=== PATIENT | female | born 1950 | race African-American/Black ===

== ENCOUNTER 2020-11-29 13:18 | Inpatient (IN) | payer OTHER ==
[~2020-11-29] VITALS: Ht 162.6 cm; Wt 97.5 kg
--- NOTE | ~2020-11-29 | HC ---
[facility] [address] [place] [address] CONSULTATION Name: ATUL DEL REAL Room #: 215-P ADM IN M.R.#: [id number] Admission: 11/29/20 Attend Phys: Wilmer Winter MD Discharge: Date of : 52 Report #: [id number] THIS REPORT FOR: cc: FAM - Family physician unknown FAM - Family physician unknown Sylvester Govea MD ~ DATE OF SERVICE: 12/06/2020 HISTORY OF PRESENT ILLNESS: The patient is a 70-year-old female with history of schizophrenia, who is from [place] where she has been living in an independent senior apartment. She has supportive therapy including a correctional counselor/case manager for her psychiatric history. She has a noted history of elopement. She apparently got on a bus and came down here to [place]. She suffered some dog bites to her feet, was noted to be hypoxic, placed on oxygen by the paramedics, was admitted for acute hospitalization. She was noted to have acute hypoxic respiratory failure, has encephalopathy superimposed on top of her schizophrenia. She was diagnosed with cellulitis of her lower extremities, placed on IV Zosyn, also noted to have COPD exacerbation and congestive heart failure. Psychiatry is following her and there is question of possible [facility] stay depending upon how she does, she is currently needing high dose oxygen. We are seeing her in rehabilitation medicine consultation. PAST MEDICAL HISTORY: Includes hypertension, exogenous obesity, tobacco abuse, 3/4 packs per day. Habits are as noted. She was not on O2 premorbidly. SOCIAL HISTORY: Please see above. Did not utilize gait aids in her apartment and was not on O2, was on social security. ALLERGIES: HALDOL AND LITHIUM. REVIEW OF SYSTEMS: No current complaints of chest pain, shortness of breath or abdominal discomfort. PHYSICAL EXAMINATION: GENERAL: A 70-year-old obese female in no obvious distress. VITAL SIGNS: Last recorded temperature 36.8, pulse 71, respirations 24, blood pressure 163/79. NEUROLOGIC: She is alert. She is pleasant. She follows basic 1 step commands, currently on 5 liters nasal cannula. Facies are symmetric. EXTREMITIES: Functional range of motion of the upper extremities. Strength is grade 4 to 4-/5. DTRs are trace to 1. Lower extremities, she does have bandages over her distal legs where she notes the dog bites are located. There is no focal calf swelling. Strength is a grade 4 to 4-/5. She is standby assistance, sit to stand, was able to ambulate standby assistance [address] [address] CONSULTATION Name: ATUL DEL REAL Room #: 215-P [facility] IN .R.#: [id number] Admission: 11/29/20 Attend Phys: Wilmer Winter MD Discharge: Date of : 52 Report #: [id number] distances utilizing 6 liters, standby assistance for bed mobility. In occupational therapy, she is noted to have severe cognitive impairment and speech therapy with [id number] memory. ASSESSMENT: A 70-year-old female with the following problem list: 1. Toxic metabolic encephalopathy superimposed on premorbid schizophrenia. 2. Acute hypoxic respiratory failure, still on high dose oxygen. She has been receiving IV Solu-Medrol. 3. Cellulitis on IV Zosyn. 4. Congestive heart failure, on IV Lasix. 5. Chronic obstructive pulmonary disease exacerbation. 6. Exogenous obesity. 7. Tobacco abuse. PLAN: Therapies to continue working with her on improving strength, mobility and ADL independence and overall endurance as well as improved cognition. Note that the Senior Behavioral Unit is considering her for possible transfer. Need to further assess the assistance as far as the home setting and potential for returning back to [place], which seems like the best option when she is further medically stabilized. I am not sure how reasonable this is. Insurance will also need to be checked regarding rehab therapy options. The patient has significant cognitive deficits and would likely need direct assistance in returning back to [place]. At this point in time, we will be glad to follow along with you regarding her rehab therapy needs and rehab therapy options. Thank you for asking us to assist in this patient's care. By: 1238 [id number] Sylvester Govea MD /nt
[2020-11-29 13:28] VITALS: BP 166/86
[2020-11-29 13:53] LABS: ABSOLUTE NEUTROPHILS 3.3 thou/uL (1.4-8.2); BASOPHILS 0.7 % (0.0-2.0); EOSINOPHILS 0.2 % (0.0-3.0); HEMATOCRIT 35.5 % (37.0-47.0); HEMOGLOBIN 11.2 gm/dL (12.0-15.0); LYMPHOCYTES 20.5 % (24.0-44.0); MCH 27.5 pg (26.0-34.0); MCHC 31.4 g/dL (28.0-37.0); MCV 87.6 fL (80.0-100.0); MONOCYTES 8.5 % (1.0-8.0); PLATELET COUNT 301 thou/uL (150-400); POLYS 70.1 % (36.0-66.0); RBC 4.06 mil/uL (4.20-5.00); RDW 16.7 % (10.5-14.5); WBC 4.7 thou/uL (4.0-11.0)
[2020-11-29 14:03] LABS: ANION GAP 7 mmol/L (7-16); BUN 23 mg/dL (7-18); CALCIUM 8.5 mg/dL (8.5-10.1); CHLORIDE 106 mmol/L (98-107); CO2 33 mmol/L (21-32); CREATININE 0.9 mg/dL (0.6-1.0); GLUCOSE 121 mg/dL (74-106); POTASSIUM 3.3 mmol/L (3.5-5.1); SODIUM 146 mmol/L (136-145)
[2020-11-29 14:13] LABS: ALBUMIN 2.9 g/dL (3.4-5.0); SGOT 28 U/L (15-37); SGPT 45 U/L (14-59); TOTAL BILIRUBIN 0.4 mg/dL (0.2-1.0); TOTAL PROTEIN 6.9 g/dL (6.4-8.2); TROPONIN-I <0.06 ng/mL (<0.06)
[2020-11-29 15:15] LABS: URINE BILIRUBIN NEGATIVE (Negative); URINE BLOOD NEGATIVE (Negative); URINE CLARITY CLEAR; URINE COLOR YELLOW; URINE GLUCOSE-RANDOM* NEGATIVE (Negative); URINE KETONES NEGATIVE (Negative); URINE LEUKOCYTES-REFLEX NEGATIVE (Negative); URINE NITRITE-REFLEX NEGATIVE (Negative); URINE PROTEIN (DIPSTICK) 2+ (Negative); URINE SPECIFIC GRAVITY >= 1.030 (1.005-1.035); URINE UROBILINOGEN 0.2 E.U./dl (0.2-1.0)
[2020-11-29 15:22] LABS: CASTS None Seen /LPF (None Seen); SQUAMOUS 0-3 Few /LPF (0-3)
[2020-11-29 15:23] LABS: BACTERIA-REFLEX 1-9 Few /HPF (None Seen); CRYSTALS None Seen /LPF (None Seen); URINE RBC 0-2 Rare /HPF (0-2); URINE WBC-REFLEX 0-5 Rare /HPF (0-5)
[2020-11-29 17:45] LABS: AMP/METHAMP Negative (Negative); BARBITURATES Negative (Negative); BENZODIAZEPINES Negative (Negative); COCAINE Negative (Negative); METHADONE Negative (Negative); OPIATES Negative (Negative); PCP Negative (Negative)
[2020-11-29 18:40] VITALS: BP 112/58
[2020-11-29 21:25] VITALS: BP 132/60
[2020-11-29 22:18] VITALS: BP 145/84
[2020-11-30] VITALS: BP 159/90
[2020-11-30 01:38] LABS: BE(vivo) 4.4 mmol/L (-2 to +3); HCO3 34.4 mmol/L (22.0-26.0); PCO2 83.4 mmHg (35.0-45.0); PO2 102.2 mmHg (80.0-100.0); pH 7.233 (7.360-7.450); sO2 96.3 % (92.0-98.0)
[2020-11-30 03:12] LABS: BE(vivo) 4.5 mmol/L (-2 to +3); HCO3 33.9 mmol/L (22.0-26.0); PCO2 78.9 mmHg (35.0-45.0); PO2 105.3 mmHg (80.0-100.0); pH 7.251 (7.360-7.450); sO2 96.7 % (92.0-98.0)
[2020-11-30 04:23] LABS: HEMATOCRIT 35.1 % (37.0-47.0); HEMOGLOBIN 10.9 gm/dL (12.0-15.0); MCH 27.6 pg (26.0-34.0); MCHC 31.1 g/dL (28.0-37.0); MCV 88.7 fL (80.0-100.0); RBC 3.95 mil/uL (4.20-5.00); RDW 17.5 % (10.5-14.5); WBC 4.1 thou/uL (4.0-11.0)
[2020-11-30 04:47] LABS: CALCIUM 8.5 mg/dL (8.5-10.1)
[2020-11-30 05:10] LABS: POTASSIUM 4.5 mmol/L (3.5-5.1)
--- NOTE | 2020-11-30 06:46 | NUR ---
PATIENTS CARES WERE ASSUMED AFTER A TRANSFER FROM ED. PATIENT WAS ASSESSED AND MEDS WERE PASSED. PATIENT HEART RATE DROPPED TO THIRTY. WENT TO HER ROOM TO VIEW HER AND SHE WAS IN DISTRESS. CALL THE PAVING FOREMAN. GOT ORDERS AND CARRIED THEM OUT, GAVE SEVERAL 0900 MEDS TO GET HER STABLE. ROUNDS WERE DONE. THE BED IS LOW AND LOCKED.
--- NOTE | 2020-11-30 06:57 | EKG ---
[place] [address] [place] [address] ELECTROCARDIOGRAM REPORT Name: ATUL DEL REAL Room #: 215-P ADM IN M.R.#: [id number] Admission: 11/29/20 Attend Phys: Wilmer Winter MD Discharge: Date of : 52 Report #: [id number] [facility] ED Test Date: 2020-11-29 Test Time: 16:38:02 Pat Name: ATUL DEL REAL Department: Room: [facility] Gender: F Supervisor Twisting Department: emily : 1950 Requested By: Jennifer Arredondo Order Number: [id number] MD: Irving Rosa Measurements Intervals [place] Rate: 63 P: 61 ME: 185 QRS: -4 QRSD: 98 T: 57 QT: 475 QTc: 487 Interpretive Statements Sinus rhythm Borderline prolonged QT interval Baseline wander in lead(s) V1,V2 No previous ECG available for comparison Electronically Signed On 11-30-2020 6:57:07 CDT by Irving Rosa [email or web address] <ELECTRONICALLY SIGNED> By: Irving Rosa MD, [facility] 11/30/20 0657 [id number] 1638 Irving Rosa MD, FACC /EPI
[2020-11-30 07:40] VITALS: BP 157/91
[2020-11-30 08:06] LABS: BE(vivo) 5.6 mmol/L (-2 to +3); HCO3 34.9 mmol/L (22.0-26.0); PCO2 77.4 mmHg (35.0-45.0); PO2 87.8 mmHg (80.0-100.0); pH 7.272 (7.360-7.450); sO2 95.1 % (92.0-98.0)
--- NOTE | 2020-11-30 09:14 | 2DMMODE ---
[facility] [address] [employer] [place] [address] 2 D/M-MODE ECHOCARDIOGRAM Name: ATUL DEL REAL Room #: 215-P ADM IN M.R.#: [id number] Admission: 11/29/20 Attend Phys: Wilmer Winter MD Discharge: Date of : 52 Report #: [id number] THIS REPORT FOR: cc: FAM - Family physician unknown FAM - Family physician unknown Irving Rosa MD [facility] ~ APPROVED REPORT Study performed: 11/30/2020 08:35:56 EXAM: Comprehensive 2D, Doppler, and color-flow Echocardiogram Patient Location: Bedside Room #: [facility] Status: routine BSA: 2.08 HR: 66 bpm BP: 159/90 mmHg Rhythm: NSR Other Information Study Quality: Good Technically limited study due to morbid obesity and patient on BiPAP. Indications Congestive Heart Failure Dyspnea Hx: COPD, HTN, DM. 2D Dimensions RVDd: 44.57 mm IVSd: 13.41 (7-11mm) LVOT Diam: 20.79 (18-24mm) LVDd: 49.52 mm PWd: 12.86 (7-11mm) Ascending Ao: 33.51 (22-36mm) LVDs: 34.04 (25-40mm) Aortic Root: 30.96 mm Volumes Left Atrial Volume (Systole) Single Plane 4CH: 81.47 mL Single Plane 2CH: 97.99 mL LA ESV Index: 46.00 mL/m2 Aortic Valve AoV Peak Kevon.: 1.54 m/s [facility] [address] [place] [address] 2 D/M-MODE ECHOCARDIOGRAM Name: ATUL DEL REAL Room #: 215-P ADM IN M.R.#: [id number] Admission: 11/29/20 Attend Phys: Wilmer Winter MD Discharge: Date of : 51 Report #: [id number] AO Peak Gr.: 9.46 mmHg LVOT Max P.37 mmHg LVOT Max V: 1.05 m/s HAILEY Vmax: 2.31 cm2 Mitral Valve E/A Ratio: 1.1 MV Decel. Time: 140.40 ms MV E Max Kevon.: 1.14 m/s MV A Kevon.: 1.00 m/s MV PHT: 40.71 ms IVRT: 76.12 ms Pulmonary Valve PV Peak Kevon.: 0.82 m/s PV Peak Gr.: 2.70 mmHg Pulmonary Vein P Vein S: 0.40 m/s P Vein D: 0.47 m/s P Vein S/D Ratio: 0.85 Tricuspid Valve TR Peak Kevon.: 2.94 m/s RAP Estimate: 15.00 mmHg TR Peak Gr.: 35.00 mmHg PA Pressure: 50.00 mmHg Left Ventricle The left ventricle is normal size. There is normal LV segmental wall motion. Mild concentric left ventricular hypertrophy. Left ventricular systolic function is normal. LVEF is 55-60%. Moderate diastolic dysfunction is present. Right Ventricle Right ventricle is at the upper limits of normal. The right ventricular systolic function is normal. Atria Biatrial enlargement. Aortic Valve The aortic valve is normal in structure. Trace aortic regurgitation. There is no aortic valvular stenosis. Mitral Valve Mitral valve leaflets are mildly thickened. Mild mitral annular calcification. Moderate mitral regurgitation. [facility] [address] [place] [address] 2 D/M-MODE ECHOCARDIOGRAM Name: ATUL DEL REAL Room #: 215-P [facility] IN ..#: [id number] Admission: 11/29/20 Attend Phys: Wilmer Winter MD Discharge: Date of : 52 Report #: [id number] Tricuspid Valve The tricuspid valve is normal in structure. Mild to moderate tricuspid regurgitation. Estimated PAP is 45-50mmHg. Pulmonic Valve The pulmonary valve is normal in structure. Trace pulmonic regurgitation. Great Vessels The aortic root is normal in size. The ascending aorta is normal in size. IVC is dilated and collapses <50% with inspiration. Pericardium There is no pericardial effusion. <Conclusion> Normal left ventricular size/mild concentric hypertrophy Ejection fraction 60% Grade 1 diastolic dysfunction Normal right ventricular size/function Mild biatrial enlargement Color-flow Doppler study was performed of the aortic/mitral/tricuspid/pulmonary valve Moderate, posteriorly directed mitral valve insufficiency Mild tricuspid valve insufficiency Pulmonary systolic pressure estimated 45 mmHg No pericardial effusion Normal aortic root size. <ELECTRONICALLY SIGNED> By: Irving Rosa MD, FACC 11/30/20913 3 3 Irving Rosa MD, FACC /INF
--- NOTE | 2020-11-30 13:18 | NUR ---
met with patient while finishing lunch. After eating she needs to return to BIPAP. Patient admits with scratches to legs by dog. She is also hypoxic requiring supplemental oxygen. Patient reports she rec SS. She has bank place on her credit card. She reports she has [employer] card and [employer] card that where recently stolen. Assisted patient in calling her bank with number she knew. Patient reports she is homeless. She does not have any sleeping bag or belongins. Patient reports her address is [address] [place] [address] in [place]. Patient with hx of schzophrenia. She gave SS#. Called registration to update for ins. they report they have rec. info. Patient gave a number for friend wandy and reports casemgt can call her [phone] which is a fax number. Patient placed on BIPAP. Casemgt following.
[2020-11-30 15:50] VITALS: BP 118/71
[2020-11-30 19:24] VITALS: BP 107/56
[2020-11-30 19:52] LABS: BE(vivo) 4.9 mmol/L (-2 to +3); HCO3 32.3 mmol/L (22.0-26.0); PCO2 62.4 mmHg (35.0-45.0); PO2 107.4 mmHg (80.0-100.0); pH 7.332 (7.360-7.450); sO2 97.5 % (92.0-98.0)
[2020-11-30 23:17] VITALS: BP 122/67
[2020-12-01 03:31] VITALS: BP 139/68
--- NOTE | 2020-12-01 07:12 | NUR ---
ASSUME CARE 1900. PT/VITALS STABLE. INTERMITTENT BLE PAIN NOTED. POOR TOLERANCE TO ACTIVITY. ASSESSMENT CHARED. MODERATE PROGRESS TO POC. SR ON MONITOR. BIPAP ALL THROUGH THE NIGHT. PT ON 4LNC THIS AM WITH ADEQUATE SATS. PLAN IS TO CONTINUE WITH ABX THERAPY AND CONTINUE TO MONITOR AND MANAGE RESPIRATION FUNCTION. WILL CONTINUE TO MONITOR AND FOLLOW WITH POC
[2020-12-01 07:35] VITALS: BP 119/63
[2020-12-01 09:37] LABS: HEMATOCRIT 35.4 % (37.0-47.0); MCH 27.3 pg (26.0-34.0); MCHC 31.1 g/dL (28.0-37.0); RBC 4.02 mil/uL (4.20-5.00); RDW 17.2 % (10.5-14.5); WBC 5.4 thou/uL (4.0-11.0)
[2020-12-01 09:47] LABS: ANION GAP < 0 mmol/L (7-16); BUN 26 mg/dL (7-18); CALCIUM 8.5 mg/dL (8.5-10.1); CHLORIDE 106 mmol/L (98-107); CO2 38 mmol/L (21-32); CREATININE 1.2 mg/dL (0.6-1.0); GLUCOSE 172 mg/dL (74-106); MAGNESIUM 1.7 mg/dL (1.8-2.4); POTASSIUM 4.4 mmol/L (3.5-5.1); SODIUM 143 mmol/L (136-145)
--- NOTE | 2020-12-01 10:21 | NUR ---
PATIENT TRANSISITIONED FROM BIPAP TO 4L NC THIS AM. SATS ADEQUATE WITH NC. WILL CONTINUE TO MONITOR THROUGH OUT THE DAY. CONTINUED IV LASIX AND IV ABX. DRESSING CHANGE DONE BY DICK RN THIS AM. PATIENT DENIES ANY NEEDS OR CONCERNS AT THIS TIME.
[2020-12-01 11:14] VITALS: BP 146/78
[2020-12-01] MEDS ORDERED: INVEGA SUS234 MG/1.5 IM (14:03)
[2020-12-01 15:10] VITALS: BP 129/72
--- NOTE | 2020-12-01 16:33 | NUR ---
WOUND PICTURES TAKEN AND PLACED IN PATIENT CHART.
--- NOTE | 2020-12-01 17:10 | NUR ---
Spoke with Jes [phone]. She is community casemgt in [place]. Sp Left message with Shirley Liriano [phone] unsure of her role. Spoke with Tere Arshad [phone]. patient resides in [place] in independent [facility] apt complex with services through waiver. The complex is called the [facility]. Tere is patients designated payee and has been since 2013. She reports patient has a "team" of services in [place] but she is known to leave area. Tere reports she left [facility] Oct 20 on 11/13 she was in [facility] and told Tere she was going to take a taxi and go to [place]. Tere please she was here in [place]. Tere reports if she pays Polly she can likely return to [facility] all her belongings in [facility]. Sp with patient who is unsure if she plans to return to [place]. Tere reports patient rec checks no longer anguiano cards as she gives them away or lost. She reports she has been to [place] and in mental instution. Tere reports she has been told by patient she has a sister but estranged. She has never had a phone number or name for sister. She reports patient has been hospitalized in past and all looking for next of kin. Patient reports can call number of sister. When called voice mail of male. Patient to have therapy evals and psych consult cont to follow for dc planning.
[2020-12-01 19:34] VITALS: BP 109/64
[2020-12-02 04:11] VITALS: BP 158/98
--- NOTE | 2020-12-02 04:32 | NUR ---
PT ALERT TO SELF AND SITUATION, REFUSES SOME OF HER MEDS, NEEDS ENCOURAGMENT AND MEDICATION EDUCATION WITH EACH DOSE, NO C/O PAIN CON'T TO REMOVE OXYGEN AND BIPAP, ABLE TO TURN SELF IN BED, VSS, WILL CON'T TO MONITOR PER PPOC.
[2020-12-02 05:41] LABS: HEMATOCRIT 35.4 % (37.0-47.0); HEMOGLOBIN 10.8 gm/dL (12.0-15.0); MCH 26.7 pg (26.0-34.0); MCHC 30.5 g/dL (28.0-37.0); MCV 87.8 fL (80.0-100.0); RBC 4.04 mil/uL (4.20-5.00); RDW 17.2 % (10.5-14.5); WBC 5.6 thou/uL (4.0-11.0)
[2020-12-02 05:46] LABS: CALCIUM 8.4 mg/dL (8.5-10.1); CREATININE 1.1 mg/dL (0.6-1.0); MAGNESIUM 1.8 mg/dL (1.8-2.4); POTASSIUM 4.3 mmol/L (3.5-5.1)
[2020-12-02 07:25] VITALS: BP 149/89
[2020-12-02 11:18] VITALS: BP 141/74
--- NOTE | 2020-12-02 12:59 | NUR ---
FAXED CLINICAL UPDATE TO VIJAY IN [place] WITH THE [facility] RECEIVED CONFIRMATION.
--- NOTE | 2020-12-02 13:36 | NUR ---
spoke with Shirley Liriano she is with [facility]. She reorts her company assist people in community with mental health support needs. They offer casemgt, psychiatry, nursing and resources. Shirley reports working with patient since Apr last year. Discussed medically patient not stable to discharge. Planning therapy evals and stability with resp status. Plan to keep casemgt updated. Shirley [phone] [email or web address]
[2020-12-02 15:06] VITALS: BP 134/79
[2020-12-02 16:24] LABS: BE(vivo) 13.9 mmol/L (-2 to +3); HCO3 42.1 mmol/L (22.0-26.0); PCO2 73.8 mmHg (35.0-45.0); PO2 68.9 mmHg (80.0-100.0); pH 7.374 (7.360-7.450); sO2 92.5 % (92.0-98.0)
--- NOTE | 2020-12-02 18:20 | NUR ---
RECEIVED PT'S CARE AROUND 729; PT. ON BED; RESTING WITH EYES CLOSED; 02 SAT ABOVE 90%L SR ON THE MONITOR; DURING AM ASSESSMENT PT. AOX4; NO C/O PAIN; AM MEDICATIONS GIVEN; EDUCATED ABOUT CALLING BEFORE GETTING UP FROM BED; ST[facility] UNDERSTAND[facility]; THROUGH THE AFTERNOON PT. REFUSED INSULIN; EDUCATED ABOUT THE IMPORTANCE OF INSULIN; REFUSED IT; UP TO THE CHAIR WITH OT; AMBULATED WITH OT; PER PT. REPORT PT'S 02 SAT DROPPED WHEN AMBULATING; 02 SAT ON THE 80s WHILE EATING; 02 TITRATE FROM 3L TO 5L; DR. SALEEM AND DR. GARCIA NOTIFIED; NO NEW ORDERS; ABGs RESULTS IN THE SYSTEM; TRIED TO CONTACT DR. GARCIA X2; NO ANSWER; PER RT. PLEASE DO NOT INCREASE 02 MORE THEN 5L DUE TO PT. MIGHT STOP BREATHING; LEVEL VIAL SEALER ST. UNDERSTANDING; WILL PASS ON REPORT; SR ON THE MONITOR; THROUGH THE DAY PT. EDUCATED ABOUT USING 02; [facility]. UND[facility]STAND[facility]; FORGETFUL; ASSESSMENT CHARGED; FOLLOWING POC; WILL PASS ON REPORT;
[2020-12-02 19:38] VITALS: BP 129/67
[2020-12-03 03:36] VITALS: BP 146/92
[2020-12-03 05:07] LABS: HEMATOCRIT 33.5 % (37.0-47.0); HEMOGLOBIN 10.5 gm/dL (12.0-15.0); MCH 27.4 pg (26.0-34.0); MCHC 31.3 g/dL (28.0-37.0); MCV 87.6 fL (80.0-100.0); RBC 3.83 mil/uL (4.20-5.00); RDW 16.9 % (10.5-14.5); WBC 6.4 thou/uL (4.0-11.0)
[2020-12-03 05:11] LABS: CALCIUM 8.3 mg/dL (8.5-10.1); CREATININE 1.2 mg/dL (0.6-1.0); MAGNESIUM 1.8 mg/dL (1.8-2.4); POTASSIUM 4.2 mmol/L (3.5-5.1)
--- NOTE | 2020-12-03 07:27 | NUR ---
PATIENT WAS ON BIPAP ON AND OFF THIS SHIFT.RESTLESS LEG NOTED.PT SLEPT.DENIES PAIN.MONITOR SHOWS SA.POC CONTINUED.
[2020-12-03 08:00] VITALS: BP 150/79
--- NOTE | 2020-12-03 14:21 | NUR ---
ON-GOING ASSESSMENT: CM REVIEWED CHART AND SPOKE WITH ATTENDING. PT REMAINS ON IV ANBX WELL IV STEROIDS. PT CONTINUES TO BE ON 5L OXYGEN AND ON AND OFF BIPAP AT TIMES. CONSULT FOR PSYCH WAS COMPLETED. GIOVANNY SPOKE WITH DR. CONKLIN WHO REPORTS THEY WILL REASSESS PATIENT ON SUNDAY TO DETERMINE HER NEEDS. IN ORDER TO BE A POSSIBLE CANIDATE FOR 5S SHE CAN NO LONGER REQUIRE ANY USE OF THE BIPAP AND ON A STABLE LEVEL OF OXYGEN THAT WOULD NOT REQUIRE ANY DOSE ADJUSTMENTS. IF PATIENT IMPROVES AND IS NOT AGREEABLE TO A PSYCH ADMISSION MAY DETERMINE IF PATIENT IS ABLE TO GET ON BUS BACK TO [place]. PSYCH IS TO REASSES PATIENT SUNDAY. NO WEEKEND DISCHARGE PLANNED AT THIS TIME. CM WILL CONTINE TO FOLLOW TO ASSIST NEEDED.
[2020-12-03 16:47] VITALS: BP 143/70
--- NOTE | 2020-12-03 18:07 | NUR ---
RECEIVED PT'S CARE AROUND 07;30; PT. ON BED RESTING WITH EYES CLOSED; BYPAP OFF; EDUCATED ABOUT MANTAIN IT ON; ST. UNDERSTANDING; DURING AM ASSESSMENT PT. AOX4; NO C/O PAIN; REMAINED ABOUT CALLING BEFORE GETTING UP FROM BED; ST. UNDERSTANDING; WORKED WITH PT AND OT; PER OT PT. REFUSED TO SIT ON CHAIR; 02 SAT ON THE 80s WITH EXERTION; DR. GARCIA AWARE; THROUGH THE DAY PT. GONE FOR CT AND US; PER DR. CONKLIN PT. NOT ABLE TO BE ADMITTED ON 5S IF USING BYPAP AT NIGHT; DR. SALEEM ROUNDING AND NOTIFIED; ASSESSMENT CHARGED; FOLLOWING POC; WILL PASS ON REPORT;
[2020-12-03 21:15] VITALS: BP 142/77
[2020-12-04 04:56] VITALS: BP 183/85
--- NOTE | 2020-12-04 08:04 | NUR ---
ASSUME CARE 1900. PT/VITALS STABLE. INTERMITTENT BLE PAIN. MODERATE TOLERANCE TO ACTIVITY. PT/OT ON BOARD TO HELPIMPROVE ACTIVITY LEVEL. ASSESSMENT CHARTED. NO DISTRESS NOTED THROUGH THE NIGHT. PT IS VERY NON COMPLIANT WITH TREATMENT PLAN AND NEEDS MORE EDUCATON ON HEALTH PROMOTION. PLAN IS TO CONTINUE WITH ABX AND STEROID THERAPY. WILL CONTINUE TO MONITOR AND FOLLOW WITH POC
[2020-12-04 08:28] LABS: HEMATOCRIT 37.3 % (37.0-47.0); HEMOGLOBIN 11.7 gm/dL (12.0-15.0); MCH 27.3 pg (26.0-34.0); MCHC 31.3 g/dL (28.0-37.0); MCV 87.1 fL (80.0-100.0); RBC 4.29 mil/uL (4.20-5.00); RDW 16.8 % (10.5-14.5)
[2020-12-04 08:36] LABS: CALCIUM 9.1 mg/dL (8.5-10.1); MAGNESIUM 1.9 mg/dL (1.8-2.4); POTASSIUM 4.5 mmol/L (3.5-5.1)
[2020-12-04 09:15] VITALS: BP 155/89
[2020-12-04 12:24] VITALS: BP 102/54
[2020-12-04 12:26] VITALS: BP 134/66
--- NOTE | 2020-12-04 14:54 | NUR ---
PT ALERT AND ORIENTED. DENIED HAVING PAIN OR DISCOMFORT. RT TREATMENT PROVIDED ORDERED. NO CONCERNS AT THIS TIME.
[2020-12-04 19:07] VITALS: BP 153/71
[2020-12-05 03:42] VITALS: BP 149/83
--- NOTE | 2020-12-05 07:24 | NUR ---
ASSUMED CARE 1900. PT DENIED PAIN, NAUSEA, OR SOB. REFUSED LABS THIS AM. TOOK BIPAP OFF AROUND 0500, DESATTED TO LOW-MID 80'S ON RA, TOOK SEVERAL MINUTES TO RETURN TO 90'S ONCE 6L NC WAS ON. NO OTHER CONCERNS, SHIFT REPORT GIVEN 0700.
[2020-12-05 08:25] LABS: HEMATOCRIT 39.1 % (37.0-47.0); HEMOGLOBIN 12.2 gm/dL (12.0-15.0); MCH 27.1 pg (26.0-34.0); MCHC 31.1 g/dL (28.0-37.0); MCV 87.1 fL (80.0-100.0); RBC 4.49 mil/uL (4.20-5.00); RDW 16.4 % (10.5-14.5); WBC 6.4 thou/uL (4.0-11.0)
[2020-12-05 08:47] LABS: CREATININE 1.1 mg/dL (0.6-1.0); MAGNESIUM 2.1 mg/dL (1.8-2.4); POTASSIUM 4.1 mmol/L (3.5-5.1)
[2020-12-05 09:01] VITALS: BP 159/86
[2020-12-05 12:44] VITALS: BP 145/79
--- NOTE | 2020-12-05 15:32 | NUR ---
PT UP IN THE CHAIR THIS SHIFT. DENIES HAVING PAIN OR DISCOMFORT. VSS. NO RESPIRATORY DISTRESS NOTED. NO CONCERNS AT THIS TIME.
[2020-12-05 16:09] VITALS: BP 133/79
[2020-12-06 05:19] VITALS: BP 138/83
[2020-12-06 07:35] VITALS: BP 163/79
--- NOTE | 2020-12-06 08:30 | HC ---
[facility] [place] [place] [address] CONSULTATION Name: ATUL DEL REAL Room #: 215-P ADM IN M.R.#: [id number] Admission: 11/29/20 Attend Phys: Wilmer Winter MD Discharge: Date of : 52 Report #: [id number] THIS REPORT FOR: cc: FAM - Family physician unknown FAM - Family physician unknown Kwadwo Johnson MD ~ DATE OF SERVICE: 11/30/2020 CHIEF COMPLAINT: Dog bite to both lower extremities. HISTORY OF PRESENT ILLNESS: This is a 70-year-old female patient who is apparently homeless with schizophrenia, who normally lives in [place], who was apparently bitten by a dog. She is currently on BiPAP and having some respiratory distress. She is confused and not able to answer any questions. PAST MEDICAL HISTORY: Reportedly positive for congestive heart failure, hypokalemia, hypoxia. ALLERGIES: HALDOL AND LITHIUM. MEDICATIONS: Include paliperidone monthly injection. Additionally, she is receiving Zosyn, ondansetron, methylprednisolone, insulin, Lasix, budesonide, albuterol. FAMILY HISTORY: Unknown. SOCIAL HISTORY: Unknown other than that in history of present illness. REVIEW OF SYSTEMS: Unobtainable due to the patient's condition. She is unable to answer any questions. PHYSICAL EXAMINATION: VITAL SIGNS: Include temperature 36.2, pulse 66, respiratory rate 21, blood pressure 157/91. GENERAL: This is a chronically ill-appearing female patient who appears to be in minimal distress. HEENT: Head normocephalic. Nose and throat are difficult to assess. She is wearing a BiPAP mask at this time. She does not open her eyes. NECK: Supple. LUNGS: Diminished. HEART: Regular rhythm without murmur. ABDOMEN: Soft and nontender. EXTREMITIES: Lower extremities demonstrate palpable distal pulses. She has what appeared to be superficial lacerations to the pretibial regions bilaterally. It is difficult to determine whether these are related to a dog [facility] [address] [place] [address] CONSULTATION Name: ATUL DEL REAL Room #: [address] [place] [address] [place] [facility].#: [id number] Admission: 11/29/20 Attend Phys: Wilmer Winter MD Discharge: Date of : 52 Report #: [id number] bite or other trauma. CLINICAL IMPRESSION: 1. Traumatic wounds to bilateral lower extremities. 2. Respiratory failure, requiring BiPAP. 3. History of chronic obstructive pulmonary disease. 4. Schizophrenia. 5. Type 2 diabetes mellitus. 6. Morbid obesity. 7. Hypertension. RECOMMENDATIONS: At this point in time, recommend topical bacitracin, Xeroform and bordered foam daily, elevate the leg for control of edema. Continue with ongoing medical management. I do appreciate being asked to see her in consultation. <ELECTRONICALLY SIGNED> By: Kwadwo Johnson MD 12/06/20 0830 1241 1837 Kwadwo Johnson MD /nt
--- NOTE | 2020-12-06 08:40 | NUR ---
pt resting quietly in room bipap alarms frequently when pt removes mask, needs much encouragement, no c/o pain, morataya with clr yellow urine. repositions self in bed, report given to next shift to con't ppoc.
[2020-12-06 09:34] LABS: HEMATOCRIT 42.7 % (37.0-47.0); HEMOGLOBIN 13.2 gm/dL (12.0-15.0); RBC 4.9 mil/uL (4.20-5.00); RDW 16.6 % (10.5-14.5); WBC 6.7 thou/uL (4.0-11.0)
[2020-12-06 09:40] LABS: CREATININE 1.2 mg/dL (0.6-1.0); MAGNESIUM 2.1 mg/dL (1.8-2.4)
--- NOTE | 2020-12-06 11:54 | NUR ---
Nutrition: pt admitted with CHF, bilateral LE cellulitis, encephalopathy. LOS. Dr Escobar following for likely schizoaffective disorder. Requiring bipap at hs, increased 02 needs. Eating 100% of meals on carb controlled diet. BG 154-215. On steroid, SSI, lasix. Weights trending down 20# from admit in negative fluid balance. Would suggest adding 2 gm Na to diet order. Otherwise low risk.
--- NOTE | 2020-12-06 15:23 | NUR ---
PT ALERT AND ORIENTED. VSS. DENIED HAVING PAIN OR DISCOMFORT. UP IN THE CHAIR THIS SHIFT. EVALUATED BY PT/OT AND SPEECH. NO CONCERNS AT THIS TIME. PT PROGRESSING WELL TOWARDS DISCHARGE GOAL.
[2020-12-06 16:00] VITALS: BP 128/62
[2020-12-06 19:55] VITALS: BP 142/66
--- NOTE | 2020-12-07 03:11 | NUR ---
SLEEPING PART OF SHIFT. DENIES COMPLAINTS OF PAIN. REMAINS ON 5L/NC. WAS ON BIPAP BUT WILL NOT KEEP ON SO PLACED BACK ON 5L. TURNS SELF IN BED. REFUSES SOME MEDICATION AT TIMES. WORKING ON GOALS AND PLAN OF CARE FOR NOC. PROGRESSING SLOWLY TOWARDS REHAB. CONTINUE TO ASSES CLOSELY.
--- NOTE | 2020-12-07 04:18 | NUR ---
REFUSED TO HAVE BLOOD DRAWN. EDUCATED ON IMPORTANCE OF LAB VALUES IN TIMELY MANNER FOR DR TO SEE IN AM. PATIENT STATES NO I WILL TALK WITH MY DR AND WE WILL DECIDE.
[2020-12-07 04:20] VITALS: BP 163/73
[2020-12-07 07:10] LABS: HEMATOCRIT 40.9 % (37.0-47.0); HEMOGLOBIN 12.7 gm/dL (12.0-15.0); MCH 26.8 pg (26.0-34.0); MCHC 30.9 g/dL (28.0-37.0); MCV 86.7 fL (80.0-100.0); RBC 4.72 mil/uL (4.20-5.00); RDW 16.9 % (10.5-14.5)
[2020-12-07 07:21] LABS: CALCIUM 8.6 mg/dL (8.5-10.1); CREATININE 1.1 mg/dL (0.6-1.0); MAGNESIUM 2.2 mg/dL (1.8-2.4); POTASSIUM 3.8 mmol/L (3.5-5.1)
[2020-12-07 09:34] VITALS: BP 128/57
--- NOTE | 2020-12-07 12:30 | NUR ---
PT IS AWAKE, ALERT TO SELF, PLACE; PT IS FROM [place] AND TRAVELS [place] VIA BUS. SHE IS ABLE TO STATE SHE IS IN [place] AND KNOWS SHE IS IN THE HOSPITAL. PT ON 5LNC, REFUSING BIPAP AT NIGHT/REST. PT QUESTIONS ALL RX MEDICATIONS. POC IS TO CONTINUE TO MONITOR O2 SAT, WOUND CARE ON LOWER EXTREMITIES. PLAN IS POSSIBLE REHAB WITH EVENTUAL DISCHARGE FOR PT TO RETURN TO [place]. PT VSS, AFEBRILE, SB ON MONITOR. DR SALEEM CONSULTED, REHAB CONSULTED. FALL PRECAUTIONS IN PLACE. NO CONCERNS AT THIS TIME.
[2020-12-07 12:41] VITALS: BP 136/71
[2020-12-07 16:00] VITALS: BP 132/75
--- NOTE | 2020-12-07 17:47 | NUR ---
5N evaled too high level and concerns for dc. Sp with Shirley patients casemgr in [place] updated reg dc planning. She reports she noted in 2018 patient had an emergency guardian Shaun Luis. the guardian after 60 days. Patient with services with [facility]g in 2019. Patient reports its is her sister. She has 6 sisters. Discussed with Shirley if any person can come to [place] to assist patient for return to [place]. No person avail. 5S evaluating patient not stable for 5 south at this time.
[2020-12-07 20:15] VITALS: BP 120/76
[2020-12-08 04:42] VITALS: BP 126/61
--- NOTE | 2020-12-08 05:51 | NUR ---
patient aox2 confused and forgetful.patient paranoid this shift, think i will give her something to kill her. hs meds attempted x2. fall precaution in place. patient in bed asleep at this time breathing regular and unlaboured.
[2020-12-08 08:00] VITALS: BP 138/81
[2020-12-08 12:21] VITALS: BP 125/69
--- NOTE | 2020-12-08 15:46 | NUR ---
[facility] 5S has evaluated and declined pt due to o2 needs. CM discussed SNF/rehab with pt at bedside; however the pt has a [place] medicaid plan with no skilled benefits. The plan does have acute rehab benefits. Pt may benefit from short acute rehab stay to work on weaning off o2/ assist device. 5N notified of request to reassess. Her CM/payee Tere may be able to arrange for the bus ticket and transport to her apt in [place]. Will need to call Tere with pt tomorrow to discuss further arrangements for getting her back to her home/support network. The pt has a mental health cm there as well.
[2020-12-08 16:00] VITALS: BP 134/72
--- NOTE | 2020-12-08 17:25 | NUR ---
PT IS AXOX2 TO 3; PT KNOWS WHO SHE IS AND WHERE SHE IS, IS SOMEWHAT AWARE OF SITUATION. RT CONSULTED. PT HAS BEEN TITRATING DOWN ON O2 AND IS ON 2L VIA NC. PT SITTING IN CHAIR MOST OF DAY. PT/OT CONSULTED. PT ABLE TO WALK BUT STILL EXHIBITS SOA WITH ACTIVITY, AND TALKING. DR JIMENEZ CONSULTED. DR CONKLIN CONSULTED. PT ABX THERAPY IS PROGRESSING TOWARDS GOALS. CASE MGMT CONSULTED. PT IS CANDIDATE FOR SNF. POC IS TO CONTINUE TO MONITOR O2 SAT, VS, AND BLOOD SUGAR, I&Os. VSS, AFEBRILE, SR ON MONITOR, DENIES PAINS. FALL PRECAUTIONS IN PLACE. NO CONCERNS AT THIS TIME.
[2020-12-08 19:50] VITALS: BP 124/62
[2020-12-09] VITALS (8 sets, daily range): BP systolic 101–166; BP diastolic 62–89
[2020-12-09 05:38] LABS: HEMATOCRIT 37.3 % (37.0-47.0); HEMOGLOBIN 11.6 gm/dL (12.0-15.0); MCH 27.2 pg (26.0-34.0); MCHC 31.1 g/dL (28.0-37.0); MCV 87.3 fL (80.0-100.0); RBC 4.27 mil/uL (4.20-5.00); RDW 16.8 % (10.5-14.5); WBC 7.9 thou/uL (4.0-11.0)
[2020-12-09 06:12] LABS: CALCIUM 8.3 mg/dL (8.5-10.1); POTASSIUM 3.4 mmol/L (3.5-5.1)
--- NOTE | 2020-12-09 08:29 | NUR ---
ASSUME CARE 1900. PT/VITALS STABLE. DENIES ANY PAIN. MODERATE TOLERANCE TO ACTIVITY. PT/OT WORKING WITH PT. LITTLE DESIRE /MOTIVATION TOWARDS HEALTH PROMOTION. NEEDS MORE ENCOURAGEMENT WITH SELF CARE AND HEALTH PROMOTION. NO DISTRESS NOTED. BIPAP AT NIGHT. ADEQUATE REST NOTED. PLAN IS TO CONTINUE ABX THERAPY AND DIURESIS/ SW FOR DISCHASRGE PLANNING WITHIN A FEW DAYS. WILL CONTINUE TO MONITOR AND FOLLOW WITH POC
--- NOTE | 2020-12-09 16:33 | NUR ---
PT CARE ASSUMED AT 0700. ASSESSMENTS CHARTED. MEDICATIONS CHARTED. RFA IV. SINUS RHYTHM. KING. BILAT LE WOUNDS; BACITRACIN, XEROFORM, BORDER FOAM. BIPAP AT NOC. 2LPM NC DURING DAY. SCHIZOPHRENIC. DESATURATES WITH ACTIVITY.
--- NOTE | 2020-12-09 17:15 | NUR ---
Awaiting 5N reeval. If accepted they will need to submit for ins auth. Pt weaning down on o2 but desats with activity. Call rec'd from the pt's mental health cm (ACT) Shirley Liriano [phone]. She notes that the pt lives in an honorio apt in [facility]. She normally sees her 2 xwkly and their RN sees her monthly. The pt's living community is called [facility] [phone] and they do have an RN on duty to help with medications. She notes that the pt has had a temporary guardian at some point in the past but is normally able to make decisions for herself. They can assist with making sure she gets from the bus station to her apt when she returns home. Cm to followup with [facility] DON tomorrow to verify level of care needs and pt's pcp.
[2020-12-10 03:29] LABS: HEMATOCRIT 36.5 % (37.0-47.0); HEMOGLOBIN 11.5 gm/dL (12.0-15.0); MCH 27.3 pg (26.0-34.0); MCHC 31.4 g/dL (28.0-37.0); MCV 86.9 fL (80.0-100.0); RBC 4.2 mil/uL (4.20-5.00); WBC 7.7 thou/uL (4.0-11.0)
--- NOTE | 2020-12-10 03:32 | NUR ---
Assumed pt care at 1900. Pt is alert and oriented. No sign of distress noted in pt. Denies any pain. Fall precaution in place. Assessment completed and documented. Scheduled meds administered to pt. No acute events overnight. Pt is pending discharge to rehab. Continue to monitor. No further needs at this time.
[2020-12-10 03:46] VITALS: BP 126/53
[2020-12-10 03:46] LABS: CALCIUM 8.4 mg/dL (8.5-10.1); CREATININE 0.9 mg/dL (0.6-1.0); POTASSIUM 3.5 mmol/L (3.5-5.1)
[2020-12-10 07:52] VITALS: BP 148/73
[2020-12-10 07:55] VITALS: BP 148/73
--- NOTE | 2020-12-10 08:14 | NUR ---
AUTHORIATION FOR ACUTE REHAB STAY REQUESTED ON 12/09/20. AWAITING RESPONSE FROM INSURANCE.
[2020-12-10] MEDS ORDERED: NORVASC10 MG PO (11:42)
[2020-12-10] MEDS ORDERED: IPRAT-ALBUT 0.5-3 ML INH (11:42)
[2020-12-10] MEDS ORDERED: RESTORIL7.5 MG PO (11:44)
[2020-12-10] MEDS ORDERED: RISPERDAL 1 MG T1 MG PO (11:44)
[2020-12-10] MEDS ORDERED: PULMICORT0.5 MG/21 INH (11:44)
[2020-12-10] MEDS ORDERED: PREDNISONE 10 M10 M1 PO (11:45)
[2020-12-10] MEDS ORDERED: LASIX 40 MG TAB40 MG PO (11:46)
[2020-12-10 11:51] VITALS: BP 161/72
[2020-12-10 11:55] VITALS: BP 161/72
--- NOTE | 2020-12-10 15:09 | NUR ---
PT CARE ASSUMED AT 0700. ASSESSMENTS CHARTED. MEDICATIONS CHARTED. RFA IV. SINUS BRADYCARDIA. COVID NEGATIVE 12/09/20. FERNANDO D/Hillary'Marivel. BM 12/10/20. ACHS. PT HAS SHCIZOPHRENIA. WOUND CARE PERFORMED. PT DISCHARGED TO 5N-REHAB, ROOM 504. BIPAP AT NOC, O2 2LPM CT.
--- NOTE | 2020-12-10 15:23 | NUR ---
Pt dcing to acute rehab 5n today and they have rec'd insurance auth. Dc to rehab and her ongoing dc plan to return to her honorio apt in [place] discussed at bedside. The pt is agreeable and ok with cm working with her ACTS RN Laura, her ACTS cm Shirley, her SS payee Tere, and [facility] sr living staff to coordinate arrangements for a bus ride/cab back to her apt once a dc date is established by the rehab team. 5N to continue weaning her off o2 and working on higher level mobility for steps, uneven surfaces and no assistive device. 5N cm updated. Tere, Shirley, and [facility]'s numbers are in the previous cm notes. Message left for all parties to contact the 5N cm early next week to being coordinating her dc arrangements. Laura's number is [phone]. Tere will need the dc date and desired [employer] bus departure time and route she can pre purchase the ticket on line.
== END 2020-12-10 14:12 | DRG 291 ==
LOC: ER 13:18 → EROBS 17:20 → 2N 17:20
PROVIDERS: Internal Medicine; Nurse Practitioner; Nurse Practitioner Family; ADMIT Hospitalist; ATTEND Hospitalist
PROC: 5A09357 Assistance with Respiratory Ventilation, Less than 24 Consecutive Hours, Continuous Positive Airway Pressure (ICD-10-PCS; principal; 2020-11-29)
PROC: 5A09457 Assistance with Respiratory Ventilation, 24-96 Consecutive Hours, Continuous Positive Airway Pressure (ICD-10-PCS; 2020-11-30)
PROC: 5A0935A Assistance with Respiratory Ventilation, Less than 24 Consecutive Hours, High Flow/Velocity Cannula (ICD-10-PCS; 2020-11-30)
PROC: 5A09357 Assistance with Respiratory Ventilation, Less than 24 Consecutive Hours, Continuous Positive Airway Pressure (ICD-10-PCS; 2020-12-01)
PROC: 5A09357 Assistance with Respiratory Ventilation, Less than 24 Consecutive Hours, Continuous Positive Airway Pressure (ICD-10-PCS; 2020-12-03)
PROC: 5A09357 Assistance with Respiratory Ventilation, Less than 24 Consecutive Hours, Continuous Positive Airway Pressure (ICD-10-PCS; 2020-12-04)
PROC: 5A0935A Assistance with Respiratory Ventilation, Less than 24 Consecutive Hours, High Flow/Velocity Cannula (ICD-10-PCS; 2020-12-05)
PROC: 5A09357 Assistance with Respiratory Ventilation, Less than 24 Consecutive Hours, Continuous Positive Airway Pressure (ICD-10-PCS; 2020-12-05)
PROC: 5A09357 Assistance with Respiratory Ventilation, Less than 24 Consecutive Hours, Continuous Positive Airway Pressure (ICD-10-PCS; 2020-12-07)
PROC: 5A09357 Assistance with Respiratory Ventilation, Less than 24 Consecutive Hours, Continuous Positive Airway Pressure (ICD-10-PCS; 2020-12-09)
DX: I11.0 Hypertensive heart disease with heart failure (principal); J96.01 Acute respiratory failure with hypoxia; G92 Toxic encephalopathy; J96.02 Acute respiratory failure with hypercapnia; E87.0 Hyperosmolality and hypernatremia; J44.1 Chronic obstructive pulmonary disease with (acute) exacerbation; E44.0 Moderate protein-calorie malnutrition; L03.116 Cellulitis of left lower limb; L03.115 Cellulitis of right lower limb; I50.33 Acute on chronic diastolic (congestive) heart failure; Z20.822 Contact with and (suspected) exposure to COVID-19; E87.6 Hypokalemia; S81.802A Unspecified open wound, left lower leg, initial encounter; S81.801A Unspecified open wound, right lower leg, initial encounter; E66.01 Morbid (severe) obesity due to excess calories; F20.9 Schizophrenia, unspecified; E11.9 Type 2 diabetes mellitus without complications; R53.81 Other malaise; F29 Unspecified psychosis not due to a substance or known physiological condition; Z88.8 Allergy status to other drugs, medicaments and biological substances; Z68.36 Body mass index [BMI] 36.0-36.9, adult; W54.0XXA Bitten by dog, initial encounter; Y93.89 Activity, other specified; Y92.89 Other specified places as the place of occurrence of the external cause; Y99.8 Other external cause status
CPT/HCPCS: 10081

== ENCOUNTER 2020-12-10 09:09 | Inpatient (IN) | payer OTHER ==
[~2020-12-10] VITALS: Ht 162.6 cm; Wt 95.8 kg
--- NOTE | ~2020-12-10 | PLAN ---
[facility] [address] [place] [address] REHAB UNIT PLAN OF CARE Name: ATUL DEL REAL Room #: 504-1 ADM IN M.R.#: [id number] Admission: 12/10/20 Attend Phys: Sylvester Govea MD Discharge: Date of : 52 Report #: [id number] THIS REPORT FOR: cc: FAM - Family physician unknown FAM - Family physician unknown Sylvester Govea MD ~ DATE OF SERVICE: 12/13/2020 PROGRESS NOTE/OVERALL PLAN OF CARE SUBJECTIVE: The patient is seen today on acute rehabilitation. No specific complaints. She continues on nasal prong O2. Last CT scan showed some small pleural effusions and she has been on oral Lasix. She has an encephalopathy superimposed upon her baseline schizophrenia. She is pleasant, cooperative. Currently on 2 liters nasal cannula. She had been on 3 liters. Transfers are min assist and she is ambulating 150 feet min assist without a device. In occupational therapy, lower body dressing is min assist with upper body dressing supervision. She is working in speech therapy with noted moderate cognitive deficits and severe memory deficits. She is on a regular diet with thin liquids. ASSESSMENT: 1. Toxic metabolic encephalopathy superimposed on premorbid schizophrenia. 2. Recent acute hypoxic respiratory failure with gradual improvement. 3. Congestive heart failure, acute exacerbation. 4. Chronic obstructive pulmonary disease, acute exacerbation. 5. Cellulitis, bilateral lower extremities with traumatic wounds. 6. Obesity. 7. Tobacco abuse. 8. Social situation. The patient is here from [place]. PLAN: The overall plan of care is based on the preadmission screen and information garnered from therapy assessments. 1. Estimated length of stay is probably at least 7-10 days. 2. Medical prognosis is reasonably good. 3. Anticipated interventions include the interdisciplinary acute inpatient rehabilitation program. 4. Anticipated functional outcomes would be for the patient to become modified independent with transfers, mobility and ADLs to improve as far as cognition to hopefully wean off her oxygen, further stabilize medically ____ get her back to the home setting in [place]. 5. Discharge destination. She does live in [place] and has a payee that is involved and does have support in [place] with a disease case manager. She apparently took a bus down here. 6. Expected therapy by discipline includes PT, OT and speech 1 hour per day [address] [address] REHAB UNIT PLAN OF CARE Name: ATUL DEL REAL Room #: 504-1 ADM IN ..#: [id number] Admission: 12/10/20 Attend Phys: Sylvester Govea MD Discharge: Date of : 52 Report #: [id number] each five days a week throughout the duration of the acute inpatient rehabilitation stay. The patient's prognosis for significant practical improvement within a reasonable period of time appears good. Given the patient's complex medical condition and risk of further medical complication, rehabilitation services could not be safely provided at a lower level of care such as a snf facility. By: [id number] Sylvester Govea MD /cony
[~2020-12-10 09:09] MED LIST: INVEGA SUS234 MG/1.5 IM
[2020-12-10] MEDS ORDERED: IPRAT-ALBUT 0.5-3 ML INH (11:42)
[2020-12-10] MEDS ORDERED: NORVASC10 MG PO (11:42)
[2020-12-10] MEDS ORDERED: RISPERDAL 1 MG T1 MG PO (11:44)
[2020-12-10] MEDS ORDERED: PULMICORT0.5 MG/21 INH (11:44)
[2020-12-10] MEDS ORDERED: RESTORIL7.5 MG PO (11:44)
[2020-12-10] MEDS ORDERED: PREDNISONE 10 M10 M1 PO (11:45)
[2020-12-10] MEDS ORDERED: LASIX 40 MG TAB40 MG PO (11:46)
--- NOTE | 2020-12-10 14:00 | NUR ---
NEW ADMISSION FROM 2N. CAME IN ON WITH HOSPITAL STAFF. ON 02 AT 2L. ALERT AND ORIENTATED, COOPERATIVE AND WAS ASKING FOR HER CREDIT CARDS AND NOT ABLE TO FIND THEM. SHE WAS ASSISTED FROM TO BED WITH SBA. VSS, ADMISSION DONE AND DOCUMENTED. PT DENIES ANY PAIN. DAVID LE WOUND ASSESSED AND PHOTOGRAPH TAKEN. DRESSING CHANGED BY 2N RN PRIOR TO TRANSFER. KING WAS ALSO REMOVED AROUND 1230 TODAY. NOT VOIDED YET. PT REPORTED, "MY CREDIT CARDS ARE STOLEN, MY EAR RING ON MY LEFT EAR IS ALSO STOLEN". THIS RN CHECKED PT'S JACKET AND DID NOT FIND ANY CREDIT CARDS OR MONEY. PT IS CALM AND COOPERATIVE DURING THE SESSION. NO SIGNS OF IMPULSIVENESS. PT ALSO REPORTED SHE DOES NOT PLAN TO RETURN TO [facility] BUT IS ALSO NOT SURE WHERE SHE IS HEADED TO AFTER SHE LEAVES FROM . NO FAMILY IN . HAS ONLY ONE SISTER IN [place]. ALL QUESTIONS AND CONCERNS ANSWERED. CALL LIGHT WITHIN REACH, BED ALARM ON.
--- NOTE | 2020-12-10 14:10 | NUR ---
chart review. unable to visit with shirlene prior to going to acute rehab today. noted she live at [facility] # [phone]. she has cm in [place] [phone], friend wandy # [phone], fatoumata [phone]. pt has been [facility]. has mental support in [place]. will cont following as needed for dc needs. need to see if can wear her off oxygen and bipap in order to try get her back home after rehab.
[2020-12-10 20:00] VITALS: BP 157/73
--- NOTE | 2020-12-11 01:43 | NUR ---
PT ASSESSMENT COMPLETED AND VSS. MEDS GIVEN ORDERED AND WELL TOLERATED. FALL PRECAUTIONS IN PLACE. INC OF URINE. SLEEPING MEDICATION WORKING WELL. SAT WNL ON NC. ASST WITH REPOSITION FOR COMFORT. DRESSINGS ON DAVID LEGS DRY AND INTACT. SLEEPING WELL. DENIES NEEDS. WILL CONTINUE TO MONITOR FREQUENTLY.
[2020-12-11 05:13] LABS: HEMATOCRIT 37.4 % (37.0-47.0); HEMOGLOBIN 11.7 gm/dL (12.0-15.0); MCH 27.4 pg (26.0-34.0); MCHC 31.3 g/dL (28.0-37.0); MCV 87.7 fL (80.0-100.0); RBC 4.27 mil/uL (4.20-5.00); RDW 17.3 % (10.5-14.5); WBC 7.8 thou/uL (4.0-11.0)
[2020-12-11 05:41] LABS: CALCIUM 8.7 mg/dL (8.5-10.1); CREATININE 0.9 mg/dL (0.6-1.0); POTASSIUM 3.7 mmol/L (3.5-5.1)
[2020-12-11 06:01] LABS: FOLIC ACID 8.3 ng/mL (8.6-58.9)
[2020-12-11 08:00] VITALS: BP 148/89
--- NOTE | 2020-12-11 09:30 | NUR ---
ASSUMED CARE AT 0700. PATIENT IS ALERT AND ORIENTED. PATIENT IS IMPULSIVE AT TIMES. PATIENT BOWEN'S, CONTACT LENS EDGE BUFFER ARE EQUAL. LUNGS AND CLEAR AND DEMINISHED. ABD IS SOFT WITH BSX4. PATIENT IS UP WITH GAIT BELT AND WALKER TO BATHROOM TO VOID MARTHA COLORED URINE. PATIENT HAS RIGHT F.A. S.L. PATIENT HAS S.T. ON RIGHT AND LEFT SHINS. FALL AND SAFETY PROTOCOLS IN PLACE. RIK PAIN AT THIST TIME. CONTINUES TO PROGRESS SLOWLY TOWARDS D/C GOALS. WILL CONTINUE TO MONITER.
--- NOTE | 2020-12-11 12:50 | NUR ---
COGNITIVE COMMUNICATION EVALUATION WAS COMPLETED THIS DATE ON THE ACUTE REHAB UNIT. SWALLOW EVAL WAS DEFERRED DUE TO FINDINGS FROM VIDEOSWALLOW THAT WAS COMPLETED ON 12/06/20 WHICH REVEALED A FUNCTIONAL OROPHARYNGEAL SWALLOW. ST WILL BE GLAD TO COMPLETE A BEDSIDE IF NURSING HAS CONCERNS FOR SWALLOWING DIFFICULTIES.
[2020-12-11 19:40] VITALS: BP 124/60
--- NOTE | 2020-12-12 01:27 | NUR ---
UP TO TOILET FOR VOID AND SMALL BM WITH GAIT BELT AND CONTACT GUARD ASSIST. GAIT BELT AND SBA WHILE PATIENT WASHING HANDS AFTER VOID. BLOOD SUGAR 123 AT HS. O2 AT HS, DOES NOT WANT BIPAP OVERNIGHT.
[2020-12-12 05:36] LABS: GLYCOHEMOGLOBIN (HGB A1C) 6.3 % (4.8-5.6)
[2020-12-12 07:15] VITALS: BP 134/63
--- NOTE | 2020-12-12 10:31 | NUR ---
ASSUMED CARE AT 0700. SLEPT WELL LAST NIGHT. HAS NOT BEEN USING BIPAP AT NIGHT SINCE TRANSFER TO REHAB. ALERT AND ORIENTATED X 4. COOPERATIVE AND ABLE TO CALL FOR ASSISTANCE. LUNGS CLEAR. ON 3L 02. UP WITH SBA TO BATHROOM WITH STEADY GAIT. DIURESING ADEQ. HAD A BM TODAY. APPETITE GOOD. DRESSING TO BLE DONE. WOUND HEALING WELL. WALKED WITH PHYSICAL THERAPY USING A CANE.
[2020-12-12 19:03] VITALS: BP 132/69
--- NOTE | 2020-12-13 02:09 | NUR ---
PT LYING IN BED. DENIES PAIN. INCONTINENT. RESTING COMFORTABLY. NO NEEDS VOICED. CALL LIGHT WITHIN REACH. FREQUENT OBSERVATION.
[2020-12-13 08:00] VITALS: BP 145/68
--- NOTE | 2020-12-13 09:53 | NUR ---
ASSUMED CARE AT 0700. SLEPT WELL. ALERT AND ORIENTATED TO SELF, PLACE AND TIME. DENIES ANY PAIN. UP WITH SBA. KHAI KRISHNAN, HAD A BM TODAY. APPETITE GOOD. LUNGS CLEAR AND DIMINISHED AT THE BASES. ON 2L 02 SAT 98-100%. COOPERATIVE AND FOLLOW INSTRUCTIONS AND USUALLY CALLS FOR ASSISTANCE. PARTICIPATES WITH THERAPY AND PROGRESSING TOWARDS GOAL. WOUND CARE DONE TO BLE, HEALING APPROPRIATELY. CONT TO MONITOR.
--- NOTE | 2020-12-13 11:56 | NUR ---
Nutrition: pt admitted with toxic metabolic encephalopathy to rehab unit. PMH: HTN, COPD, schizophrenia, DM. RD received consult related to poor intake. Weights trending down with diuresis/lasix. BMI 36 obesity class 2. Appetite has been good, eats 100% of meals on Carb controlled, 2 gm Na diet. On 1500 ml fluid restriction. Right tibial and left duarte ulcer related to possible dog bites. No nutrition intervention at this time due to excellent po. Low risk.
[2020-12-13 19:17] VITALS: BP 146/74
--- NOTE | 2020-12-14 02:58 | NUR ---
URGENTLY UP TO TOILET WITH STANDBY ASSIST. CAREFUL AND STEADY ON HER FEET WHEN UP. REMINDED ONCE TO REPLACE HER O2, HAS BEEN REFUSING HER BIPAP FOR SEVERAL NIGHTS NOW AND IS CAREFUL TO RESTRICT FLUIDS TO UNDER 1.5 LITERS A DAY.
[2020-12-14 08:00] VITALS: BP 162/97
--- NOTE | 2020-12-14 13:47 | NUR ---
team meeting, recommendation: need to see if o2 can be tapered off if able to. using cane. mod/sever memory/cog. pills and bills. insurance review is 16th. dc 16th on bus back to [facility] ( pt jose ) when gets back home. nurse to manage medication back at home.
--- NOTE | 2020-12-14 17:46 | NUR ---
0700 ASSUMED CARE OF PATIENT, PATIENT IN BED AT THAT TIME. PATIENT EATS 100% OF BREAKFAST, DENIES NEEDS AT THAT TIME. PATIENT HARD TO UNDERSTAND AT TIMES. MUMBLING TO SELF NOTED. PATIENT DENIES SI/HI, NO C/O PAIN. PATIENTS BED ALARM SOUNDS OFF AND PATIENT VIEWED UP TO BR WITHOUT ASSISTANCE. PATIENT ASKED TO CALL FOR HELP. PATIENT QUESTIONS ALL MEDS GIVEN TO HER AND STATES "I DO NOT TAKE THOSE MEDS AND YOU ARE ALL GIVING ME DIFFERENT DOSES". PATIENT REFUSED TO TAKE 1700 METFORMIN AND STATES "I ONLY TAKE ONCE A DAY NOT TWICE. MEDICAL OFFICE SCHEDULER EXPLAINS THE TIMES AND DOSES PATIENT REFUSED MED.
[2020-12-14 19:21] VITALS: BP 134/78
--- NOTE | 2020-12-15 02:16 | NUR ---
CAREFUL TO BE STEADY ON FEET TO BATHROOM, DOES NOT ALWAYS CALL FOR STANDBY ASSIST. TAKING JUST A FEW SIPS OF WATER AND STAYING WELL WITHIN FLUID RESTRICTION OF 1500 CC DAILY. AGAIN NOT INTERESTED IN BIPAP OVERNIGHT, 93% ON ROOM AIR, RT HERE AND HAS PUT HER ON 4L FOR O/N USE SINCE HE SAW HER REALLY STRUGGLE WHEN SHE FIRST CAME TO [facility]. HAS BEEN SLEEPING ON HER SIDE OBSERVED DURING HOURLY ROUNDS SINCE 2200
[2020-12-15 07:42] VITALS: BP 123/69
--- NOTE | 2020-12-15 09:12 | NUR ---
naz left message for lukas with [facility] to call cm back rt transportation home for dc back to [place]
--- NOTE | 2020-12-15 09:38 | NUR ---
ASSUMED CARE AT 0700. PATIENT IS ALERT AND ORIENTED X4. PATIENT BOWEN'S, HAND WRAPPER OPERATOR ARE EQUAL. LUNGS ARE CLEAR AND DEMINISHED. ABD IS SOFT WITH BSX4. UP TO THE BATHROOM WITH GAIT BELT AND WALKER TO VOID MARTHA COLORED URINE. PATIENT HAS S.L. IN HER RIGHT AC. FALL AND SAFETY PROTOCOLS IN PLACE. DENIES PAIN AT THIS TIME. CONTINUES TO PROGRESS TOWARDS D/C GOAL. PLAN D/C TO [facility]. ON SUNDAY.
--- NOTE | 2020-12-15 12:23 | NUR ---
12/15/20 @1215: GRETEL RAY RN [employer] SALES ASSOCIATE REMOVED PIV TO RAC PER ORDER. PATIENT TOLERATED WELL. CATHETER INTACT, SITE WNL WITH SOME CRUSTED BLOOD NOTED, BANDAID AND COTTON BALL APPLIED. NO BLEEDING NOTED.
[2020-12-15 19:15] VITALS: BP 138/84
--- NOTE | 2020-12-16 00:39 | NUR ---
PT ASSESSMENT COMPLETED AND VSS. MEDS GIVEN ORDERED AND WELL TOLERATED. FALL PRECAUTIONS IN PLACE. PT VERY IMPULSIVE AND GETTING UP TO GO TO THE BATHROOM WITHOUT CALLING. SNACK PROVIDED AT HS. SLEEPING WELL. DENIES NEEDS. WILL CONTINUE TO MONITOR FREQUENTLY. SAT WNL ON NC.
[2020-12-16 06:01] LABS: BASOPHILS 0.7 % (0.0-2.0); EOSINOPHILS 0.1 % (0.0-3.0); HEMATOCRIT 38.1 % (37.0-47.0); HEMOGLOBIN 11.9 gm/dL (12.0-15.0); LYMPHOCYTES 17.4 % (24.0-44.0); MCHC 31.2 g/dL (28.0-37.0); MCV 86.7 fL (80.0-100.0); MONOCYTES 7.5 % (1.0-8.0); PLATELET COUNT 251 thou/uL (150-400); POLYS 74.3 % (36.0-66.0); RBC 4.39 mil/uL (4.20-5.00); RDW 17.2 % (10.5-14.5); WBC 8.1 thou/uL (4.0-11.0)
[2020-12-16 06:25] LABS: CALCIUM 9.1 mg/dL (8.5-10.1); CREATININE 0.9 mg/dL (0.6-1.0); POTASSIUM 3.6 mmol/L (3.5-5.1)
[2020-12-16 08:00] VITALS: BP 152/87
--- NOTE | 2020-12-16 11:00 | NUR ---
ASSUMED CARE AT 0700. SLEPT FAIR. ALERT AND ORIENTATED X 2-3, IMPULSIVE AT TIMES. PT RE ORIENTATED SEVERAL TIMES TO USE THE CALL LIGHT FOR ASSISTANCE. PT IS SOMETIMES COMPLIANT AND CALLS. LUNGS CLEAR/DIM ON 2L 02. DENIES ANY SHORT OF AIR, CHEST PAIN. AMBULATES WITH SBA WITH THERAPY. APPETITE GOOD, EATS 100% OF MEALS. PLAN FOR DC TO [facility] ([place] TOMORROW BETWEEN 6-7AM. 02 WILL BE ARRANGE BY [facility] PATIENT ACCOUNTING REPRESENTATIVE AT [place]. DISCHARGE ORDERS DONE.
[2020-12-16] MEDS ORDERED: METFORMIN HCL500 M1 PO (12:02)
[2020-12-16] MEDS ORDERED: VENTOLIN HFA 1818 GM INH (12:04)
--- NOTE | 2020-12-16 12:07 | NUR ---
dc orders to be completed today, so can get to her custodial in [place] before she is dc. [facility] chair transportation will be here on the between 6-7 am to take her home, send copy of dc orders with her. ok per golf caddy to vouch for wheel chair medical transportation home. naz passed on information to her PENITENTIARY and bedside nurse here.
--- NOTE | 2020-12-16 16:16 | NUR ---
FAXED HOME O2 REFERRAL TO [facility] SPOKE WITH PRESLEY IN INTAKE HE RECEIVED REFERRAL AND WILL HAVE A [facility] REP IN [place] ARRANGE O2 AT PT'S AL.
--- NOTE | 2020-12-16 16:49 | NUR ---
FAXED DC ORDERS/SUMMARY TO [facility] RECEIVED CONFIRMATION ZBIGNIEW BURTON/SW WILL CALL FACILITY IN THE AM.
[2020-12-16 20:00] VITALS: BP 133/64
--- NOTE | 2020-12-16 23:50 | NUR ---
PT ASSESSMENT COMPLETED AND VSS. MEDS GIVEN ORDERED AND WELL TOLERATED. FALL PRECAUTIONS IN PLACE. PT IMPULSIVE WHEN NEEDING TO GO TO THE BATHROOM. VOIDING LARGE AMOUNT OF DARK YELLOW URINE. PT DENIES NEEDS. SAT WNL ON NC. SLEEPING WELL. WILL CONTINUE TO MONITOR FREQUENTLY.
[2020-12-17 06:00] VITALS: BP 168/84
[2020-12-17 06:53] VITALS: BP 165/84
--- NOTE | 2020-12-17 07:41 | NUR ---
PT ASSESSMENT/VS/AND BG COMPLETED THIS MORNING AT 6 AM. CONTACTED ROXIE SOTO REGARDING 9 AM MEDS AND IF THEY SHOULD BE GIVEN BEFORE D/C. GAVE MEDICATION ORDERED. ALL PT BELONGINGS AND SNACKS/FOOD SENT WITH TRANSPORTERS. NC 02. WENT OVER D/C PAPERWORK WITH PT AND SENT NECESSARY PAPERWORK WITH TRANSPORTERS. PT DENIES NEEDS AND WAS TAKEN TO BY [facility] ORDERED. EVERYTHING WENT SMOOTHLY THIS MORNING WITH TRANSPORT.
--- NOTE | 2020-12-17 10:04 | NUR ---
PATIENT WAS DISCHARGED EARLIER THIS MORNING VIA [facility] PREVIOUSLY ARRANGED. SHE WAS SENT WITH OXYGEN, WELL PAPER ORDERS AND DC PACKET, FOOD, WATER, AND SUPPLIES FOR CARE ENROUTE. RECEIVED MESSAGE FROM [facility] LAUREN, STATING THAT THIS FACILITY DOES NOT ACCEPT ADMISSIONS ON FRIDAYS AND THAT THE PATIENTS SERVICES WILL NOT START UNTIL NEXT WEEK, AND ALSO THAT THEY ARE MISSING A WAIVER. CALL WAS PLACED TO MARIA AT [phone], WHO STATED THAT THIS PATIENT'S WAIVER IS STILL "OPEN," AND THAT THIS HAS BEEN TAKEN CARE OF REGARDING HER RE-ADMISSION TO THE [facility]. SOPHIA WIN REQUESTED THAT THE PATIENT'S DISTRIBUTION AGENT, LIZZIE, BE NOTIFIED THAT SHE IS ON HER WAY BACK TO [place]. MARIA ALSO PROVIDED AN EMAIL FOR CAROLE KULKARNI AT THE ASSISTED LIVING FACILITY, AND REQUESTED THAT IN ADDITION TO A CALL, THIS IL EMAIL CAROLE KULKARNI AT [email or web address] CALLED CAROLE KULKARNI AT [phone], AND LEFT A VOICEMAIL. IL CALLED LIZZIE, THE DISTRIBUTION AGENT, WHO VERBALIZED THAT "THE AL WILL TAKE CARE OF THINGS," AND WAS GRATEFUL FOR THE CALL. IL EMAILED CAROLE KULKARNI VIA SECURE EMAIL, REQUESTING A CALL BACK TODAY. NO IDENTIFYING INFORMATION GIVEN IN THE EMAIL TO PROTECT HIPAA. MESSAGE SENT TO CARE TEAM CONFIRMING THE ABOVE ACTIONS.
--- NOTE | 2020-12-20 15:30 | NUR ---
fatoumata called from [place] requesting dc sum and orders, stated she never received them, passed on that have confirmation of 12/17/20 that was sent, checked fax number and was same [phone], cm team faxed again.
== END 2020-12-17 07:00 | disposition home or self-care (01) | DRG 91 ==
PROVIDERS: Nurse Practitioner; Nurse Practitioner Family; ADMIT Physical Medicine & Rehabilitation; ATTEND Physical Medicine & Rehabilitation
DX: G92 Toxic encephalopathy (principal); I50.33 Acute on chronic diastolic (congestive) heart failure; J96.21 Acute and chronic respiratory failure with hypoxia; J96.22 Acute and chronic respiratory failure with hypercapnia; J44.1 Chronic obstructive pulmonary disease with (acute) exacerbation; E87.0 Hyperosmolality and hypernatremia; L03.116 Cellulitis of left lower limb; L03.115 Cellulitis of right lower limb; E44.0 Moderate protein-calorie malnutrition; F20.9 Schizophrenia, unspecified; E66.9 Obesity, unspecified; I11.0 Hypertensive heart disease with heart failure; E11.9 Type 2 diabetes mellitus without complications; E55.9 Vitamin D deficiency, unspecified; Z96.653 Presence of artificial knee joint, bilateral; F17.210 Nicotine dependence, cigarettes, uncomplicated; R53.81 Other malaise; E53.8 Deficiency of other specified B group vitamins; Z68.36 Body mass index [BMI] 36.0-36.9, adult; Z88.8 Allergy status to other drugs, medicaments and biological substances
CPT/HCPCS: 10112